=== PATIENT | female | born 1985 | race Two or more races ===

== ENCOUNTER 2018-09-26 01:47 | Emergency (ER) | payer SELFPAY, MEDICARE, MEDICAID ==
[~2018-09-26] VITALS: Ht 165.1 cm; Wt 61.2 kg
[2018-09-26 02:00] VITALS: BP 138/90
--- NOTE | 2018-09-26 02:09 | Emergency Room Report ---
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, patient reports that she has history of MS and reported diffuse body ache Upon arrival the patient appears in no acute distress Reports having history of cough Allergies: Coded Allergies: SUMATRIPTAN (Verified Allergy, Unknown, 09/26/18) Uncoded Allergies: BENEDRY (Allergy, Unknown, 09/26/18) Patient History Past Medical History: see triage record Pertinent Family History: none Last Menstrual Period: 09/17 Now: No Reviewed Nursing Documentation: PMH: Agreed; PSxH: Agreed Nursing Documentation-PMH Past Medical History: No History, Except For Hx Neurological Problems: Yes Review of Systems All Other Systems: negative except mentioned in HPI Physical Exam Vital Signs Date Time Temp Pulse Resp B/P (MAP) Pulse Ox O2 Delivery O2 Flow Rate FiO2 09/26/18 01:53 98.8 100 16 138/95 100 Room Air Sp02 EP Interpretation: reviewed, normal General Appearance: well appearing, no apparent distress Head: normocephalic, atraumatic Eyes: bilateral eye PERRL, bilateral eye EOMI ENT: hearing grossly normal, normal pharynx, TMs + canals normal, uvula midline Neck: full range of motion, supple, no meningismus, no bony tend Respiratory: lungs clear, normal breath sounds, no rhonchi, no respiratory distress, no retraction, no accessory muscle use Cardiovascular #1: normal peripheral pulses, regular rate, rhythm, no edema, no gallop, no JVD, no murmur Gastrointestinal: normal bowel sounds, non tender, soft, no mass, no organomegaly, non-distended, no guarding, no hernia, no pulsatile mass, no rebound Genitourinary: no CVA tenderness Musculoskeletal: normal inspection Neurologic: oriented x3, responsive, photo equipment technician III-XII nml as tested, motor strength/ tone normal, sensory intact Psychiatric: mood/affect normal Skin: normal color, no rash, warm/dry, palpation normal Lymphatic: normal inspection, no adenopathy Medical Decision Making Diagnostic Impression: Primary Impression: myalgia ER Course Patient has multiple differentials considered Upon arrival has appropriate hemodynamic stability Patient was conversing and laughing with the staff and blanket winder helper department Patient has appropriate medical screening evaluation is stable for further booking Follow-up in the morning with everett Berger Last Vital Signs Date Time Temp Pulse Resp B/P (MAP) Pulse Ox O2 Delivery O2 Flow Rate FiO2 09/26/18 01:53 98.8 100 16 138/95 100 Room Air Status: unchanged Disposition: D/C TO [employer] IN [facility] Condition: Stable Departure Forms: Long Term Clearance Patient Instructions: Muscle Pain, Adult Additional Instructions: follow-up everett Berger in the morning Mary Hernandez DO Sep 26, 2018 02:09
[2018-09-26 02:16] VITALS: BP 131/78
== END 2018-09-26 02:16 ==
LOC: EMR 02:05
DX: M79.10 Myalgia, unspecified site (principal)
CPT/HCPCS: 99283